=== PATIENT | female | born 1995 | race Caucasian/White ===

== ENCOUNTER 2021-07-15 10:55 | Outpatient (CLI) | payer OTHER, SELFPAY ==
[2021-07-15 11:22] LABS: Hematocrit 40.2 % (37.0-47.0); Hemoglobin 13.4 g/dL (12.0-15.0); Mean Corpuscular HGB Conc 33.3 g/dl (32-36); Mean Corpuscular Hemoglobin 30.1 pg (26-34); Mean Corpuscular Volume 90.3 fl (80-100); Mean Platelet Volume 10.1 fl (7.4-10.4); Platelet Count Result 353 k/mm3 (150-375); Red Blood Count 4.45 M/mm3 (4.2-5.4); Red Cell Distribution Width 12.6 % (11.5-14.5); White Blood Count 7.3 K/mm3 (4.5-10.0)
[2021-07-15 11:35] LABS: Anion Gap 9 mmol/L (8-16); Blood Urea Nitrogen 16 mg/dL (7-17); Carbon Dioxide 24 mmol/L (22-30); Chloride 104 mmol/L (98-107); Estimated Glomerular Filt Rate > 60; Glucose 92 mg/dL (65-110); Potassium 3.8 mmol/L (3.4-5.0); Sodium 137 mmol/L (137-145)
[2021-07-15 11:50] LABS: Vitamin D 25 Hydroxy 42.2 ng/mL
== END 2021-07-15 10:56 | disposition home or self-care (01) ==
LOC: ANHLAB 10:57
PROVIDERS: PCP Family Medicine; Visit Provider Nurse Practitioner Family
DX: E55.9 Vitamin D deficiency, unspecified (principal); R42 Dizziness and giddiness; R25.1 Tremor, unspecified
CPT/HCPCS: 36415; 80048; 82306; 84443; 85027

== ENCOUNTER 2024-10-12 05:46 | Inpatient (IN) | payer OTHER, SELFPAY ==
[2024-10-12] VITALS (137 sets, daily range): BP systolic 89–148; BP diastolic 40–112; PULSE 64–143; RESP 16; TEMP 36.1–37.3; O2SAT 92–100; BMI 35.2
[2024-10-12 07:07] LABS: Basophils Percent Auto 0.3 % (0.2-1.2); Eosinophils Absolute Auto 0.1 K/mm3 (0-0.3); Eosinophils Percent Auto 0.5 % (0-4.4); Hematocrit 31.7 % (37.0-47.0); Hemoglobin 10.2 g/dL (12.0-15.0); Immature Granulocyte Absolute 0.04 K/mm3 (0.00-0.031); Immature Granulocyte Percent A 0.4 % (0-0.5); Lymphocytes Absolute Auto 1.73 K/mm3 (0.9-3.2); Mean Corpuscular HGB Conc 32.2 g/dl (32-36); Mean Corpuscular Hemoglobin 27.9 pg (26-34); Mean Corpuscular Volume 86.8 fl (80-100); Mean Platelet Volume 10.4 fl (7.4-10.4); Monocytes Absolute Auto 0.8 K/mm3 (0.1-0.6); Monocytes Percent Auto 7.4 % (2.6-8.5); Neutrophils Absolute Auto 7.6 K/mm3 (1.3-6.7); Neutrophils Percent Auto 74.4 % (45.5-73.1); Platelet Count Result 281 k/mm3 (150-375); Red Blood Count 3.65 M/mm3 (4.2-5.4); Red Cell Distribution Width 13.3 % (11.5-14.5); White Blood Count 10.2 K/mm3 (4.5-10.0)
[2024-10-12] MEDS: miSOPROStol 25 MCG TABLET 50 MCG BUCCAL (07:07)
--- NOTE | 2024-10-12 07:10 | LDADM ---
This patient, Rochelle Archuleta, was admitted to Labor/Delivery/Recovery 105 on 10/12/24 at 05:46. Plans for labor, pain management and were discussed with patient. Patient/family oriented to hospital policies and general routines including ID bracelet, bed and alarms, visiting hours, pain management, procedures, bathroom and other care routines, personal items, smoking policy, room service/diet and guest tray routines, infant security routines, and visiting hours. Patient/Family are encouraged to report perceived risks to care and to ask questions if they do not understand what they are told or what they should do. See OBIX for further documentation.
--- NOTE | 2024-10-12 08:06 | WPDOBADMIT ---
Obstetrics - Admit Note Admission Note: record reviewed. No pertinent additions to the history and/or any subsequent changes in the physical findings that are not consistent with the expected course of the were found. Additions to the history and/or subsequent changes in the physical findings follow. chronic HTN, IOL, SVE /-1 attempted AROM, anticipate vaginal delivery
[2024-10-12 08:13] LABS: Syphilis IgG/IgM Antibody Non-Reactive (Nonreactive)
[2024-10-12] MEDS: LACTATED RINGERS 1,000 ML 125 ML IV CONT ×2 (11:08→15:02)
[2024-10-12] MEDS: OXYTOCIN 30 UNITS/NS 500 ML 30 UNITS/500 ML BAG IV CONT (11:08)
--- NOTE | 2024-10-12 15:23 | WPDANESEPPF ---
Anes - Initial Pre Proc Eval Date/Time: 10/12/24 15:23 Surgeon: Gal Loera MD Pre Op Diagnosis: IOL Patient Data Age: 29 Gender: F Height: 1.73 m Weight: 105 kg Last Vital Signs Temp 36.6 C 10/12/24 11:57 Pulse 93 10/12/24 15:22 BP 130/62 10/12/24 15:22 Pulse Ox 99 10/12/24 15:19 O2 Del Method Room Air 10/12/24 07:10 Allergies Allergy/AdvReac Type Severity Reaction Status Date / Time No Known Allergies Allergy Verified 10/12/24 07:20 Home Medications ?Medication ?Instructions ?Recorded ?Confirmed ?Type PNV 153-FA 400 mcg-om3 35 mg-dha 1 tablet PO DAILY 10/12/24 10/12/24 History 25 mg-epa 5 mg-fish oil chew tablet ( Gummies) Laboratory Tests 10/12/24 07:02 WBC 10.2 H K/mm3 (4.5-10.0) RBC 3.65 L M/mm3 (4.2-5.4) Hgb 10.2 L D g/dL (12.0-15.0) Hct 31.7 L % (37.0-47.0) MCV 86.8 fl (80-100) MCH 27.9 pg (26-34) MCHC 32.2 g/dl (32-36) RDW 13.3 % (11.5-14.5) Plt Count 281 k/mm3 (150-375) MPV 10.4 fl (7.4-10.4) Immature Gran % (Auto) 0.4 % (0-0.5) Neut % (Auto) 74.4 H % (45.5-73.1) Lymph % (Auto) 17.0 L % (18.3-44.2) [place] % (Auto) 7.4 % (2.6-8.5) Eos % (Auto) 0.5 % (0-4.4) Baso % (Auto) 0.3 % (0.2-1.2) Lymph # (Auto) 1.73 K/mm3 (0.9-3.2) H[place] # (Auto) 0.8 H K/mm3 (0.1-0.6) Eos # (Auto) 0.1 K/mm3 (0-0.3) Baso # (Auto) 0.0 K/mm3 (0.0-0.1) Abs Immat Gran (auto) 0.04 H K/mm3 (0.00-0.031) Absolute Neuts (auto) 7.6 H K/mm3 (1.3-6.7) Absolute Nucleated RBC 0.000 K/mm3 (0.0-0.012) Nucleated RBC % 0.0 % (0.0-0.2) Syphilis IgG/IgM Ab Non-reactive (Nonreactive) Blood Type A Positive Antibody Screen Negative Patient hx anesthesia problems: none Family hx anesthesia problems: none Results Review: All pre-operative results and documents have been reviewed as part of the pre-operative evaluation. [facility] Past Medical History Medical History BMI 29.0-29.9,adult Family History Family History Sibling Hypertension Other Family history of malignant neoplasm of breast Social History Social History Smoking status: Never smoker Alcohol intake: never Do You Feel Safe in your Home?: Yes Lack of Transportation: No Lack of Food: Never True Current Housing: I Have Housing Concerned About Future Housing: No Difficulty Paying Gas/Electric Bills: No Difficulty Paying for Meds: No Currently Unemployed: No Education: Trade/Vocational Certificate Difficulty w/ Childcare or Family Care: No Spiritual care concerns: No Anes - Eval Final PreProcedure Day of Procedure 10/12/24 15:23 Patient weight: obese Heart: regular rate and rhythm Lungs: clear to auscultation Neurological: alert and oriented ASA classification: II Emergent: no Anesthetic plan: proceed Anesthesia type and monitoring: regional epidural and standard monitoring Results Review: All pre-operative results and documents have been reviewed as part of the pre-operative evaluation. Informed Consent: The patient's anesthetic plan and its attendant risks and benefits were discussed with the patient/family/POA. Questions were solicited and answers provided to the satisfaction of the patient/family/POA.
--- NOTE | 2024-10-12 17:25 | PM.OBPNLAB ---
Pain Control Date/time seen: 10/12/24 17:25 Comments: FHR having variables, SVE /-2, IUPC placed without difficulty, anticipate vaginal delivery
[2024-10-12] MEDS: SODIUM CHLORIDE 0.9% IV 300 ML 600 ML I-UTERINE (17:36)
--- NOTE | 2024-10-12 18:50 | PM.OBPRVD ---
OB - Vaginal Delivery Note Procedure Delivery date: 10/12/24 Events: Chronic Hypertension Induction method: AROM, Per Misoprostol Protocol and Per Pitocin Protocol Delivery monitor: External FHT and External Uterine Route of delivery: Episiotomy description: None Laceration Description: None Specimen: No Quantitative Blood Loss (ml): 75 Anesthesia type: Epidural Disposition: Floor Complications: No immediate complications Baby Date of : 10/12/24 Time of : 18:41 Gestational Age by Date: 38 gender: Female presentation: vertex position: Left Occiput Anterior Placenta delivery description: Spontaneous Cord Vessel Description: 3 Vessels, Clamped/Cut and Delayed Cord Clamping score one minute: 9 score five minutes: 9
[2024-10-12] MEDS: OXYTOCIN 30 UNITS/NS 500 ML 30 UNITS/500 ML BAG 125 UNITS IV CONT (19:13)
[2024-10-13 00:15] VITALS: BP 108/58; PULSE 70; RESP 16; TEMP 36.6; O2SAT 98
[2024-10-13 04:45] VITALS: BP 115/77; PULSE 76; RESP 16; TEMP 36.7; O2SAT 99
[2024-10-13 05:35] LABS: Hematocrit 34.4 % (37.0-47.0); Hemoglobin 10.8 g/dL (12.0-15.0)
[2024-10-13 07:30] VITALS: BP 120/74; PULSE 69; RESP 18; TEMP 37.1; O2SAT 99
--- NOTE | 2024-10-13 08:00 | PC.NURSE ---
Mother verbalizes she is able to independently latch with appropriate positioning and alignment. She denies any nipple discomfort and is responsively . Infant is currently meeting outcomes for weight, output, jaundice, blood sugar and feeding frequencies of 8-12 times in 24 hours. Mother declines any additional assistance or education at this time. Mother is encouraged to call for assistance if her infant doesn?t latch, pain with latching, questions or concerns. Mother voiced understanding of information shared along with the mom/baby guide for an additional resource. Reported to the Primary RN.
--- NOTE | 2024-10-13 08:17 | P.PNOB_ITS ---
OB - PN: Subj Subjective Date/time seen: 10/13/24 08:17 Patient comments: no complaints, pain well controlled, incisional pain, tolerating diet and flatus present OB - PN: Obj Data Labs 10/13/24 05:01 Labs: Laboratory Results - last 24 hr 10/13/24 05:01 Hgb 10.8 L Hct 34.4 L OB - PN A/P Plan day: 1 Plan: routine care Comments: No problems, routine care Time Spent With Patient Time: Total time spent is greater than 50% in coordination of care (as documented) at patient's floor/unit and/or counseling patient: Exam 2 Const: General: comfortable, no acute distress and alert Resp: Effort & Inspection: normal respiratory effort Auscultation: no crackles, no rales and no rhonchi Cardio: Rate: regular rate Heart sounds: no click, no murmurs and no rubs GI: Inspection: non-distended GI Palp: No Tenderness to palpation present (GI) Auscultation: normal bowel sounds Other: Incision - CDI Extrem: General: normal to inspection, no pedal edema and no calf tenderness
--- NOTE | 2024-10-13 08:18 | PM.OBDSVD ---
DS: Admitting Diagnosis Discharge Date 10/13/2024 Admitting Diagnosis Term DS: Discharge Diagnosis Discharge Diagnosis (1) Term delivered: Code(s): O80 - Encounter for full-term uncomplicated delivery Status: Acute OB - DS: Summary OB Procedures : None OB Procedures Intrapartum: Spontaneous Vag Delivery OB Procedures: : None Peripartum Data Laceration Description: None Episiotomy description: None Time Spent with Patient Time attestation: Total time spent providing and/or coordinating discharge services: DS: Data Data Completed and Pending Labs on day of discharge: Labs from last 24 hours 10/13/24 05:01 Hgb 10.8 L Hct 34.4 L Discharge Plan Discharge Discharging Clinician: Miguel Hernandes Patient Disposition: Home Activity: pelvic rest Diet: regular Patient Instructions: Antibiotic Form Patient Language: Unknown Stand Alone Forms: General Discharge Information Follow-up/Referrals: Miguel Hernandes MD [Physician] - Discharge Medications: Continued Gummies 400 mcg-35 mg- 25 mg-5 mg tablet,chewable 1 tablet PO DAILY Date of admission: 10/12/24 05:46 Primary Care Provider: Eliceo Fajardo Admitting Provider: Gal Loera Attending physician on admission: Gal Loera Condition: Stable
[2024-10-13 12:02] VITALS: BP 123/69; PULSE 88; RESP 18; TEMP 36.8; O2SAT 99
--- NOTE | 2024-10-13 14:06 | PC.NURSE ---
Primary RN updated this RN that a nipple shield was provided to mother due to maternal request. Per mother, she does not need additional education about how to use a nipple shield.
--- NOTE | 2024-10-13 14:14 | WPDANLDPN2 ---
Anes-Prog Note L&D Date/Time: 10/13/24 14:14 Comfortable throughout: labor and delivery Neuraxial method: epidural Epidural/Spinal procedure site: clean & non-tender Neuro status: Neuro function grossly intact. Cardiovascular status: normal Respiratory status: normal Airway patency: baseline Mental status: baseline Post-Op hydration status: normal Vital Signs: Last Vital Signs Temp 98.2 F 10/13/24 12:02 Pulse 88 10/13/24 12:02 Resp 18 10/13/24 12:02 BP 123/69 10/13/24 12:02 Pulse Ox 99 10/13/24 12:02 O2 Del Method Room Air 10/13/24 08:30 Pain score (VAS): 0/10 I/O: Intake & Output 10/12/24 10/13/24 10/13/24 23:59 07:59 15:59 Output Total 75 Balance -75 Post-procedural complaints: none Patient feedback: Patient satisfied with anesthetic care.
== END 2024-10-13 20:16 | disposition home or self-care (01) | DRG 560 ==
LOC: ANHOB2 10-13 08:20 → ANHLDR 10-14 10:52 → ANHOB2 10-14 10:52
PROVIDERS: Advanced Practice Midwife; Admitting Provider Obstetrics & Gynecology; PCP Family Medicine; Visit Provider Obstetrics & Gynecology
DX: O76 Abnormality in fetal heart rate and rhythm complicating labor and delivery (principal); O10.92 Unspecified pre-existing hypertension complicating childbirth; O43.123 Velamentous insertion of umbilical cord, third trimester; Z3A.38 38 weeks gestation of pregnancy; Z37.0 Single live birth
CPT/HCPCS: 36415; 85014; 85018; 85025; 86593; 86850; 86900; 86901; A9270; J2590; J2795; J7030; J7120